=== PATIENT | male | born 1985 | race Caucasian/White ===

== ENCOUNTER → 2016-10-03 | Outpatient (CLI) | payer BC | LOC: COL.RAD 13:30 | DX: M21.822 Other specified acquired deformities of left upper arm (principal); M24.012 Loose body in left shoulder | CPT/HCPCS: A9585; Q9967 ==

== ENCOUNTER → 2018-06-18 | Outpatient (CLI) | payer OTHER | LOC: SUN.CLI 09:30 | DX: G40.804 Other epilepsy, intractable, without status epilepticus (principal); Z04.89 Encounter for examination and observation for other specified reasons ==